=== PATIENT | male | born 1950 | race Two or more races ===

== ENCOUNTER 2024-01-23 09:35 | Emergency (ER) | payer MEDICARE, OTHER ==
--- NOTE | 2024-01-23 11:12 | Ultrasound Report ---
PROCEDURE: Duplex Ext Veins Left INDICATIONS: pain/swelling TECHNIQUE: Real-time imaging, as well as color and pulse Doppler interrogation, were performed of the lower extr emity deep veins from the inguinal ligament to the popliteal fossa. Attempted visualization of the ca lf veins was performed. COMPARISON: None. FINDINGS: The deep veins are normally compressible, and free of intraluminal thrombus. Color and pu lse Doppler demonstrate normal phasic intraluminal flow. There is normal augmentation response to di stal compression maneuver. IMPRESSION: No deep venous thrombosis of the left lower extremity. Reviewed by: Juanjose Palmer MD on 01/23/2024 11:11 AM PDT Approved by: Juanjose Palmer MD on 01/23/2024 11:11 AM PDT Station ID: [id number]
--- NOTE | 2024-01-23 11:23 | ED Physician Documentation ---
History of Present Illness - Stated complaint Stated Complaint: LT LEG SWELLING - Chief complaint Chief Complaint: General - History obtained from History obtained from: Patient - Additonal information Additional information: The patient comes to the emergency department chief complaint of swelling in his left leg. He states that he had to take a flight last week and was concerned he may have developed a blood clot. He has had some mild aching. He denies any shortness of breath or chest pain. No redness or fevers. He has never had swelling there before. No other complaints at this time. PD PAST MEDICAL HISTORY - Past Medical History Past Medical History: No - Past Surgical History Past Surgical History: Yes Ortho: Shoulder arthroplasty - Present Medications Home Medications: Ambulatory Orders Medication Instructions Recorded Confirmed Tadalafil [Cialis] 5 mg PO DAILY 01/23/24 01/23/24 - Allergies Allergies/Adverse Reactions: Allergies Allergy/AdvReac Type Severity Reaction Status Date / Time No Known Drug Allergies Allergy Verified 01/23/24 09:53 - Social History Does the pt smoke?: No Smoking Status: Never smoker Does the pt drink ETOH?: No Does the pt have substance abuse?: No - Immunizations Immunizations are current?: Yes PD ED PE NORMAL - Vitals Vital signs reviewed: Yes - General General: Alert and oriented X 3, No acute distress, Well developed/nourished - HEENT HEENT: Atraumatic, PERRL, EOMI, Moist mucous membranes - Neck Neck: Supple, no meningeal sign - Respiratory Respiratory: No respiratory distress, Clear bilaterally - Derm Derm: Normal color, Warm and dry, No rash - Extremities Extremities: No deformity, Other (Moderate edema of left leg compared to right. No calf tenderness. Mild edema of left knee as well. Slightly limited range of motion secondary to this.) - Neuro Neuro: Alert and oriented X 3 - Psych Psych: Normal mood, Normal affect Results - Rads (name of study) Ultrasound left lower extremity Relevant Findings:: Final report received, See rad report (Negative for DVT.) PD Medical Decision Making - ED course Complexity details: reviewed results, re-evaluated patient, considered differential, d/w patient ED course: The patient was worked up with ultrasound of the left lower extremity and this w as negative. I discussed with the patient that I do not know what has caused his lower extremity swelling although if he has some irritation in his knee we have discussed symptomatic management at home as well as the usual Indications for follow-up and return. Departure - Departure Disposition: 01 Home, Self Care Clinical Impression: Unilateral edema of lower extremity Condition: Stable Instructions: ED Leg Swelling Unilateral Comments: Your ultrasound is negative for blood clot. It is not entirely clear why your leg is swelling, though if your knee has been flared up, it is possible that gravity has pulled the inflammatory fluid down into your lower leg. If you have some valvular insufficiency of your veins higher up in your leg otherwise, then it can leave you more prone to swelling from other causes. Please follow-up with your primary doctor to discuss further concerns. You may use the pressure stockings that you ordered online, or you may use the ones prescribed. Forms: PCP List Discharge Date/Time: 01/23/24 11:29
[2024-01-23 11:31] VITALS: BP 136/83; O2SAT 98
== END 2024-01-23 11:29 | disposition home or self-care (01) ==
LOC: ED 09:35
DX: R60.0 Localized edema (principal)
CPT/HCPCS: 99283; 99284